=== PATIENT | female | born 1995 | race Two or more races ===

== ENCOUNTER 2018-06-01 20:48 | Emergency (ER) | payer BC, OTHER ==
[~2018-06-01] VITALS: Ht 165.1 cm; Wt 59.9 kg
--- NOTE | 2018-06-01 21:05 | NUR ---
Patient ambulated with stable gait. AAOx4. Speech is clear, speaks in complete sentences. No neuro deficits. Patient came with c/o swelling left cheek with labored breathing s/p dentist procedure. No cardiovascular distress, all pulses palpable. No GI/ distress. Patient in bed at lowest position, side rails upx2, call light within reach. Fall precautions implemented per protocol.
[2018-06-01] MEDS ORDERED: EPINEPHRINE 1 MG/1 ML AMP ONE (21:10)
[2018-06-01] MEDS ORDERED: FAMOTIDINE. 20 MG/2 ML VIAL IV ONE ×2 (21:15→21:28)
[2018-06-01] MEDS ORDERED: methylPREDNISolone SOD SUCC 125 MG/2 ML VIAL IV ONE (21:15)
[2018-06-01] MEDS ORDERED: diphenhydrAMINE 50 MG/1 ML VIAL IV ONE ×2 (21:15)
[2018-06-01] MEDS ORDERED: EPINEPHRINE 1 MG/1 ML AMP IM ONE (21:15)
[2018-06-01] MEDS ORDERED: methylPREDNISolone SOD SUCC 125 MG/2 ML VIAL ONE (21:28)
[2018-06-01] MEDS ORDERED: diphenhydrAMINE 50 MG/1 ML VIAL ONE (21:28)
--- NOTE | 2018-06-01 22:05 | NUR ---
Patient in bed, VSS/NAD
[2018-06-01 22:44] VITALS: BP 116/66
--- NOTE | 2018-06-01 22:44 | NUR ---
Patient discharged to home in stable conditon. Written and verbal after care instructions given. Patient verbalizes understanding of instructions. Patient ambulated with stable gait.
== END 2018-06-01 22:44 | disposition home or self-care (01) ==
LOC: ER 20:50
DX: K08.89 Other specified disorders of teeth and supporting structures (principal); R11.10 Vomiting, unspecified; T36.0X5A Adverse effect of penicillins, initial encounter; Y92.89 Other specified places as the place of occurrence of the external cause
CPT/HCPCS: 96372; 96374; 96375; 99284; J0171; J1200; J2930; J3490; A4663